=== PATIENT | female | born 1990 | race Caucasian/White ===

== ENCOUNTER → 2019-09-14 10:25 | Outpatient (BNVA) | payer SELFPAY | PROVIDERS: Family Provider Nurse Practitioner Family; Referring Provider Family Medicine; Visit Provider Specialist | DX: R42 Dizziness and giddiness (principal); F07.81 Postconcussional syndrome; G43.711 Chronic migraine without aura, intractable, with status migrainosus; R20.0 Anesthesia of skin; F17.210 Nicotine dependence, cigarettes, uncomplicated | CPT/HCPCS: 99204 ==

== ENCOUNTER 2019-09-22 11:56 | Outpatient (CLI) | payer SELFPAY ==
--- NOTE | 2019-09-22 11:45 | MR_ITS ---
WS: [id number] MRI CERVICAL SPINE NONCONTRAST TECHNIQUE: Sagittal T1, T2 and STIR imaging. Axial T2, gradient, and fiesta imaging. CLINICAL INFORMATION: G43.909 Migraine, unspecified, not intractable, without s... COMPARISON: None. FINDINGS: Straightening of the normal cervical lordosis. No high-grade central canal narrowing. Cord signal is normal. Normal C1-C2 articulation. 1 mm anterolisthesis C2 on C3. C2-C3: Normal. C3-C4: Normal. C4-C5: No significant disc bulging. Spinal canal and foramen are patent. C5-C6: Mild annular bulging. Slight effacement of ventral thecal sac. Mild facet arthropathy. Spinal canal and foramen are patent. C6-C7: Mild disc bulging with osteophytic ridging eccentric to the left. Mild left and no significant right foraminal narrowing. Mild facet arthropathy. C7-T1: Mild left and no significant right foraminal narrowing. Spinal canal is patent. T1-T2: Normal. Visualized brain stem structures: Normal. Prevertebral soft tissues: Normal. MR/MR cervical spin wo con* [id number] IMPRESSION: 1. Straightening of the normal cervical lordosis with 1 mm anterolisthesis C2 on C3. 2. No significant central canal stenosis. Cord signal is normal. 3. Mild disc osteophyte complex C6-C7 with mild left bony foraminal narrowing. 4. Mild left C5-C6 foraminal narrowing with minimal disc bulging. 5. No other significant findings.
== END 2019-09-22 11:57 | disposition home or self-care (01) ==
PROVIDERS: PCP Nurse Practitioner Family; Visit Provider Specialist
DX: G43.909 Migraine, unspecified, not intractable, without status migrainosus (principal); M25.78 Osteophyte, vertebrae; M48.02 Spinal stenosis, cervical region
CPT/HCPCS: 72141